=== PATIENT | male | born 1965 | race Caucasian/White ===

== ENCOUNTER 2017-11-19 08:02 | Observation (INO) | payer MEDICAID ==
[~2017-11-19] VITALS: Ht 175.3 cm; Wt 68.4 kg
[~2017-11-19 08:02] MED LIST: ALBU6.7H INH; CEPH-571 PO; CLIN300C85 PO; CLON-527 PO; DIVA500T9 PO; PHEN100C12 PO
[2017-11-19] MEDS ORDERED: aspirin 81mg tab.chew PO ONE (08:25)
[2017-11-19] MEDS ORDERED: nitroGLYCERIN 0.4mg SUBLingual tab SL ONE (08:38)
[2017-11-19 08:39] LABS: BASOPHILS % (AUTO) 0.4 % (0-1); EOSINOPHILS # (AUTO) 0.1 X10'3 (0-0.9); EOSINOPHILS % (AUTO) 0.6 % (0-6); HEMOGLOBIN 17.5 g/dl (14.0-17.9); LYMPHOCYTES # (AUTO) 2.1 X10'3 (1.1-4.8); MEAN CORPUSCULAR HEMOGLOBIN 33.2 PG (27.0-31.0); MEAN CORPUSCULAR HGB CONC 34.4 % (33.0-36.5); MEAN CORPUSCULAR VOLUME 96.5 FL (78-98); MEAN PLATELET VOLUME 8.1 FL (7.4-10.4); MONOCYTES # (AUTO) 0.6 X10'3 (0-0.9); MONOCYTES % (AUTO) 5.8 % (2-12); NEUTROPHILS # (AUTO) 7.7 X10'3 (1.8-7.7); NEUTROPHILS % (AUTO) 73.2 % (42-75); PLATELET COUNT 199 X10'3 (140-440); RED BLOOD COUNT 5.28 X10'6 (4.70-6.10); RED CELL DISTRIBUTION WIDTH 13.7 % (11.5-14.5); WHITE BLOOD COUNT 10.5 X10'3 (4.5-11.0)
[2017-11-19] MEDS ORDERED: metoprolol tartrate 1mg/ml inj IV ONE (08:50)
[2017-11-19 08:55] LABS: ALANINE AMINOTRANSFERASE 157 U/L (12-78); ALBUMIN 3.9 G/DL (3.4-5.0); ALBUMIN/GLOBULIN RATIO 0.9 (1.1-1.5); ALKALINE PHOSPHATASE 80 IU/L (46-116); ANION GAP 8 (8-16); ASPARTATE AMINO TRANSFERASE 66 U/L (10-37); BILIRUBIN,TOTAL 0.6 MG/DL (0.1-1.0); BLOOD UREA NITROGEN 13 MG/DL (7-18); BUN/CREATININE RATIO 16.9 (5.4-32.0); CALCIUM 9.2 MG/DL (8.5-10.1); CHLORIDE 102 MMOL/L (99-107); CREATININE 0.77 MG/DL (0.60-1.10); GLUCOSE 113 MG/DL (70-104); POTASSIUM 4.4 MMOL/L (3.5-5.1); SODIUM 137 MMOL/L (135-145); TOTAL CARBON DIOXIDE 27.3 MMOL/L (24-32); TOTAL PROTEIN 8.2 G/DL (6.4-8.2); eGFR > 90 ML/MIN
[2017-11-19] MEDS ORDERED: metoprolol tartrate 1mg/ml inj IV PRN (09:20)
[2017-11-19] MEDS ORDERED: magnesium/D5W IVPB 50 ML IV PRN (09:20)
[2017-11-19] MEDS ORDERED: magnesium Cl slow-release 64mg tablet PO PRN (09:20)
[2017-11-19] MEDS ORDERED: HYDROcodone/acetaminophen 10/325mg tab PO PRN (09:20)
[2017-11-19] MEDS ORDERED: nitroGLYCERIN 0.4mg SUBLingual tab SL PRN (09:20)
[2017-11-19] MEDS ORDERED: diphenhydrAMINE 25mg capsule PO PRN (09:20)
[2017-11-19] MEDS ORDERED: CAFFEINE CITRATE 60 MG/3 ML injection vial IV PRN (09:20)
[2017-11-19] MEDS ORDERED: morphine 4 MG/ML inj SYRINge IV PRN ×2 (09:20)
[2017-11-19] MEDS ORDERED: regadenoson 0.4mg/5ml syringe IV ONE (09:20)
[2017-11-19] MEDS ORDERED: HYDROcodone/acetaminophen 5mg/325mg tablet PO PRN (09:20)
[2017-11-19] MEDS ORDERED: potassium Cl 40MEQ/NS 500ml 500 ML IV PRN ×2 (09:20)
[2017-11-19] MEDS ORDERED: magnesium hydroxide 30ml (MOM) UD suspension PO PRN (09:20)
[2017-11-19] MEDS: K and/or MAG REPLACEMENT MC SCH (09:20)
[2017-11-19] MEDS ORDERED: potassium Cl 20 mEq SR tablet PO PRN ×2 (09:20)
[2017-11-19] MEDS ORDERED: magnesium 4gm in 100ml NS 100 ML IV PRN (09:20)
[2017-11-19] MEDS ORDERED: mag hydrox/Alum hydrox/simeth 30ml oral suspension PO PRN (09:20)
[2017-11-19] MEDS ORDERED: acetaminophen 325mg tablet PO PRN ×2 (09:20)
[2017-11-19] MEDS ORDERED: bisacodyl 10mg suppository rectal RC PRN (09:20)
[2017-11-19] MEDS ORDERED: ondansetron/PF 4mg/2ml inj IV PRN (09:20)
[2017-11-19 09:45] LABS: HEMOGLOBIN A1C 5.4 % (4.5-6.2)
[2017-11-19] MEDS ORDERED: iohexol 350MG/ML 100ml bottle IV ONE (09:48)
[2017-11-19] MEDS ORDERED: ipratropium/albuterol 3ml nebule NEB PRN (10:20)
[2017-11-19 11:00] VITALS: BP 138/93
[2017-11-19 11:37] VITALS: BP 138/93
[2017-11-19] MEDS: normal saline 1000ml 1,000 ML IV SCH ×2 (12:03→19:16)
[2017-11-19] MEDS: enoxaparin 40mg/0.4ml syringe SUBCUT SCH (12:03)
[2017-11-19] MEDS: levoFLOXACIN-Levaquin 750MG/D5 150 ML IV SCH (12:03)
[2017-11-19 15:00] VITALS: BP 128/89
[2017-11-19] MEDS ORDERED: albuterol 2.5 MG/3 ML nebule NEB PRN (16:00)
[2017-11-19 17:04] LABS: CLARITY,URINE CLEAR (Clear); COLOR,URINE YELLOW (Yellow); GLUCOSE, URINE NEGATIVE (Neg); KETONES,URINE NEGATIVE (Neg); LEUKOCYTE ESTERASE ,URINE NEGATIVE (Neg); NITRITES, URINE NEGATIVE (Neg); OCCULT BLOOD,URINE NEGATIVE (Neg); PROTEIN,URINE NEGATIVE (Neg); URINE AMPHETAMINE SCREEN NEGATIVE (Neg); URINE BARBITUATE SCREEN NEGATIVE (Neg); URINE BENZODIAZEPINES SCREEN NEGATIVE (Neg); URINE CANNABINOID SCREEN POSITIVE (Neg); URINE COCAINE SCREEN NEGATIVE (Neg); URINE METHADONE SCREEN NEGATIVE (Neg); URINE OPIATE SCREEN POSITIVE (Neg); URINE PHENCYCLIDINE SCREEN NEGATIVE (Neg)
[2017-11-19 17:07] LABS: UA COLLECTION TYPE NON-SPECIFIED
[2017-11-19 19:00] VITALS: BP 130/86
[2017-11-19] MEDS ORDERED: divalproex sod 250mg ER (24-hour) tablet PO SCH (21:00)
[2017-11-19] MEDS ORDERED: temazepam 15mg capsule PO PRN (21:00)
[2017-11-19] MEDS ORDERED: phenytoin sod ER 100mg capsule PO SCH (21:00)
[2017-11-19 23:00] VITALS: BP 109/80
[2017-11-20] VITALS (10 sets, daily range): BP systolic 113–140; BP diastolic 76–140
[2017-11-20] MEDS: normal saline 1000ml 1,000 ML IV SCH (05:22)
[2017-11-20 06:07] LABS: BASOPHILS % (AUTO) 0.5 % (0-1); EOSINOPHILS # (AUTO) 0.2 X10'3 (0-0.9); EOSINOPHILS % (AUTO) 2.8 % (0-6); HEMOGLOBIN 16.8 g/dl (14.0-17.9); LYMPHOCYTES # (AUTO) 2.3 X10'3 (1.1-4.8); MEAN CORPUSCULAR HGB CONC 34.2 % (33.0-36.5); MEAN CORPUSCULAR VOLUME 96.6 FL (78-98); MONOCYTES # (AUTO) 0.6 X10'3 (0-0.9); MONOCYTES % (AUTO) 7.6 % (2-12); NEUTROPHILS # (AUTO) 4.4 X10'3 (1.8-7.7); NEUTROPHILS % (AUTO) 58.1 % (42-75); PLATELET COUNT 193 X10'3 (140-440); RED BLOOD COUNT 5.07 X10'6 (4.70-6.10); RED CELL DISTRIBUTION WIDTH 14.1 % (11.5-14.5); WHITE BLOOD COUNT 7.5 X10'3 (4.5-11.0)
[2017-11-20 06:25] LABS: ALANINE AMINOTRANSFERASE 133 U/L (12-78); ALBUMIN 3.3 G/DL (3.4-5.0); ALBUMIN/GLOBULIN RATIO 0.8 (1.1-1.5); ALKALINE PHOSPHATASE 71 IU/L (46-116); ANION GAP 7 (8-16); ASPARTATE AMINO TRANSFERASE 62 U/L (10-37); BILIRUBIN,TOTAL 0.4 MG/DL (0.1-1.0); BLOOD UREA NITROGEN 15 MG/DL (7-18); BUN/CREATININE RATIO 19.2 (5.4-32.0); CALCIUM 8.8 MG/DL (8.5-10.1); CHLORIDE 103 MMOL/L (99-107); CHOL/HDL RATIO 2.8 (0.00-4.99); CHOLESTEROL 137 MG/DL (0-200); CREATININE 0.78 MG/DL (0.60-1.10); GLUCOSE 100 MG/DL (70-104); HDL CHOLESTEROL 49 MG/DL (35-60); LDL CHOLESTEROL 77 MG/DL (50-100); MAGNESIUM 1.9 MG/DL (1.5-2.4); PHOSPHORUS 2.9 MG/DL (2.3-4.5); POTASSIUM 4.3 MMOL/L (3.5-5.1); SODIUM 137 MMOL/L (135-145); TOTAL CARBON DIOXIDE 27.2 MMOL/L (24-32); TOTAL PROTEIN 7.3 G/DL (6.4-8.2); TRIGLYCERIDES 58 MG/DL (20-135); eGFR > 90 ML/MIN
[2017-11-20] MEDS ORDERED: regadenoson 0.4mg/5ml syringe IV ONE ×2 (07:45→08:19)
[2017-11-20] MEDS: K and/or MAG REPLACEMENT MC SCH (07:51)
[2017-11-20] MEDS: enoxaparin 40mg/0.4ml syringe SUBCUT SCH (07:53)
[2017-11-20] MEDS ORDERED: CAFFEINE CITRATE 60 MG/3 ML injection vial IV ONE (08:19)
[2017-11-20] MEDS: levoFLOXACIN-Levaquin 750MG/D5 150 ML IV SCH (09:32)
[2017-11-20] MEDS ORDERED: NITR0.4T51 SL (10:53)
[2017-11-20] MEDS ORDERED: ASPI-611 PO (10:53)
[2017-11-20] MEDS ORDERED: LEVO500T89 PO (10:55)
== END 2017-11-20 11:55 | disposition home or self-care (01) ==
LOC: ER 08:02 → ED HOLD 09:16 → PCU 3S 11:30
PROVIDERS: ADMIT Family Medicine; ATTEND Family Medicine
DX: R07.89 Other chest pain (principal); F17.210 Nicotine dependence, cigarettes, uncomplicated; F12.10 Cannabis abuse, uncomplicated; F10.10 Alcohol abuse, uncomplicated; B19.20 Unspecified viral hepatitis C without hepatic coma; I72.8 Aneurysm of other specified arteries; F31.9 Bipolar disorder, unspecified; G40.909 Epilepsy, unspecified, not intractable, without status epilepticus; I10 Essential (primary) hypertension; I25.110 Atherosclerotic heart disease of native coronary artery with unstable angina pectoris; Z86.73 Personal history of transient ischemic attack (TIA), and cerebral infarction without residual deficits; J40 Bronchitis, not specified as acute or chronic; M54.9 Dorsalgia, unspecified; G89.29 Other chronic pain; Z91.19 Patient's noncompliance with other medical treatment and regimen; Z90.49 Acquired absence of other specified parts of digestive tract; Z82.49 Family history of ischemic heart disease and other diseases of the circulatory system; Z80.1 Family history of malignant neoplasm of trachea, bronchus and lung
CPT/HCPCS: 36415; 71046; 71275; 78451; 80053; 80061; 80185; 80305; 81003; 83036; 83735; 83880; 84100; 84484; 85025; 85610; 87070; 93005; 93017; 93306; 94760; 96361; 96365; 96366; 96372; 96375; 99285; A9500; G0378; J1650; J1956; J3490; J7030; Q9967

== ENCOUNTER 2019-03-06 12:44 | Outpatient (CLI) | payer MEDICAID ==
[~2019-03-06 12:44] MED LIST changes: -ALBU6.7H INH; +ALBU6.7H9 INH; +ALBU8.5H8 INH; -CEPH-571 PO; -CLIN300C85 PO; -CLON-527 PO; +IPRA3AMP31 IH; +NITR0.4T51 SL
== END 2019-03-06 23:59 | disposition home or self-care (01) ==
LOC: RAD 12:44
DX: G40.909 Epilepsy, unspecified, not intractable, without status epilepticus (principal); F31.9 Bipolar disorder, unspecified
CPT/HCPCS: 95816

== ENCOUNTER 2019-09-26 18:06 | Emergency (ER) | payer MEDICAID ==
[~2019-09-26] VITALS: Ht 175.3 cm; Wt 79.5 kg
[2019-09-26] MEDS ORDERED: normal saline 1000ml 1,000 ML IVB ONE (18:25)
--- NOTE | 2019-09-26 18:30 | NUR ---
Pt on NRB SaO2 at 100%. Room sat never obtained. Desat to 90% on RA, given O2 via NC@2 LPM
[2019-09-26 18:55] LABS: PARTIAL THROMBOPLASTIN TIME 24 SECONDS (22-32)
--- NOTE | 2019-09-26 19:01 | NUR ---
JOAN BLOOM [facility] [phone]
--- NOTE | 2019-09-26 19:01 | NUR ---
JOAN BLOOM [phone]
[2019-09-26 19:02] LABS: ALANINE AMINOTRANSFERASE 68 U/L (12-78); ALBUMIN 4.1 G/DL (3.4-5.0); ALBUMIN/GLOBULIN RATIO 1.1 (1.1-1.5); ALKALINE PHOSPHATASE 52 IU/L (46-116); ANION GAP 18 (8-16); ASPARTATE AMINO TRANSFERASE 44 U/L (10-37); BILIRUBIN,TOTAL 0.9 MG/DL (0.1-1.0); BLOOD UREA NITROGEN 13 MG/DL (7-18); BUN/CREATININE RATIO 10.8 (5.4-32.0); CALCIUM 8.9 MG/DL (8.5-10.1); CHLORIDE 104 MMOL/L (99-107); GLUCOSE 113 MG/DL (70-104); POTASSIUM 3.4 MMOL/L (3.5-5.1); SODIUM 141 MMOL/L (135-145); TOTAL CARBON DIOXIDE 19.3 MMOL/L (24-32); TOTAL PROTEIN 7.8 G/DL (6.4-8.2); eGFR 64 ML/MIN
[2019-09-26 19:11] LABS: BASOPHILS % (AUTO) 0.4 % (0-1); EOSINOPHILS # (AUTO) 0.1 X10'3 (0-0.9); EOSINOPHILS % (AUTO) 0.8 % (0-6); HEMATOCRIT 49.8 % (42.0-52.0); HEMOGLOBIN 16.9 g/dl (14.0-17.9); LYMPHOCYTES # (AUTO) 2.4 X10'3 (1.1-4.8); LYMPHOCYTES % (AUTO) 27.6 % (21-51); MEAN CORPUSCULAR HEMOGLOBIN 33.2 PG (27.0-31.0); MEAN CORPUSCULAR HGB CONC 33.9 g/dL (33.0-36.5); MEAN PLATELET VOLUME 8.7 FL (7.4-10.4); MONOCYTES # (AUTO) 0.4 X10'3 (0-0.9); MONOCYTES % (AUTO) 4.7 % (2-12); NEUTROPHILS # (AUTO) 5.7 X10'3 (1.8-7.7); NEUTROPHILS % (AUTO) 66.5 % (42-75); PLATELET COUNT 187 X10'3 (140-440); RED BLOOD COUNT 5.07 X10'6 (4.70-6.10); WHITE BLOOD COUNT 8.6 X10'3 (4.5-11.0)
[2019-09-26 19:58] VITALS: BP 114/89
== END 2019-09-26 22:00 | disposition home or self-care (01) ==
LOC: ER 18:07
DX: G40.909 Epilepsy, unspecified, not intractable, without status epilepticus (principal); N28.9 Disorder of kidney and ureter, unspecified; J44.9 Chronic obstructive pulmonary disease, unspecified; F17.200 Nicotine dependence, unspecified, uncomplicated; E78.5 Hyperlipidemia, unspecified; G89.29 Other chronic pain; F12.90 Cannabis use, unspecified, uncomplicated; Z86.73 Personal history of transient ischemic attack (TIA), and cerebral infarction without residual deficits; Z90.49 Acquired absence of other specified parts of digestive tract; Z98.890 Other specified postprocedural states; Z88.0 Allergy status to penicillin; Z88.8 Allergy status to other drugs, medicaments and biological substances
CPT/HCPCS: 36415; 71045; 80053; 83880; 84484; 85025; 85379; 85610; 85730; 93005; 99285; J7030

== ENCOUNTER 2020-02-21 21:23 | Emergency (ER) | payer MEDICAID ==
--- NOTE | 2020-02-21 21:53 | NUR ---
found patient [place] bus [place]. Asked him to come in for evaluation. He said he was good now and didn't want to.
[2020-02-22] MEDS ORDERED: CEPH250T PO (20:14)
== END 2020-02-21 22:42 | disposition left against medical advice (07) ==
LOC: ER 21:24
DX: Z00.8 Encounter for other general examination (principal); Z53.21 Procedure and treatment not carried out due to patient leaving prior to being seen by health care provider

== ENCOUNTER 2020-02-22 17:03 | Emergency (ER) | payer MEDICAID ==
[~2020-02-22] VITALS: Ht 175.3 cm; Wt 75.0 kg
--- NOTE | 2020-02-22 17:59 | NUR ---
Pt returned from CT.
[2020-02-22] MEDS ORDERED: ondansetron/PF 4mg/2ml inj IV ONE (18:15)
[2020-02-22] MEDS ORDERED: morphine 4 MG/ML inj SYRINge IV ONE (18:15)
[2020-02-22 18:43] VITALS: BP 120/76
[2020-02-22 19:09] LABS: ALANINE AMINOTRANSFERASE 81 U/L (12-78); ALBUMIN 3.6 G/DL (3.4-5.0); ALBUMIN/GLOBULIN RATIO 0.9 (1.1-1.5); ALKALINE PHOSPHATASE 49 IU/L (46-116); ANION GAP 7 (8-16); ASPARTATE AMINO TRANSFERASE 37 U/L (10-37); BILIRUBIN,TOTAL 0.6 MG/DL (0.1-1.0); BLOOD UREA NITROGEN 15 MG/DL (7-18); CALCIUM 9.1 MG/DL (8.5-10.1); CHLORIDE 102 MMOL/L (99-107); CREATININE 0.88 MG/DL (0.60-1.10); GLUCOSE 85 MG/DL (70-104); POTASSIUM 3.7 MMOL/L (3.5-5.1); SODIUM 138 MMOL/L (135-145); TOTAL CARBON DIOXIDE 29.4 MMOL/L (24-32); TOTAL PROTEIN 7.4 G/DL (6.4-8.2); eGFR > 90 ML/MIN
[2020-02-22 19:11] LABS: BASOPHILS % (AUTO) 0.3 % (0-1); EOSINOPHILS # (AUTO) 0.1 X10'3 (0-0.9); EOSINOPHILS % (AUTO) 0.6 % (0-6); HEMATOCRIT 48.1 % (42.0-52.0); HEMOGLOBIN 16.7 g/dl (14.0-17.9); LYMPHOCYTES # (AUTO) 2.2 X10'3 (1.1-4.8); LYMPHOCYTES % (AUTO) 15.5 % (21-51); MEAN CORPUSCULAR HEMOGLOBIN 33.8 PG (27.0-31.0); MEAN CORPUSCULAR HGB CONC 34.6 g/dL (33.0-36.5); MEAN CORPUSCULAR VOLUME 97.5 FL (78-98); MEAN PLATELET VOLUME 8.7 FL (7.4-10.4); MONOCYTES # (AUTO) 1.5 X10'3 (0-0.9); MONOCYTES % (AUTO) 10.3 % (2-12); NEUTROPHILS # (AUTO) 10.4 X10'3 (1.8-7.7); NEUTROPHILS % (AUTO) 73.3 % (42-75); PLATELET COUNT 199 X10'3 (140-440); RED BLOOD COUNT 4.93 X10'6 (4.70-6.10); RED CELL DISTRIBUTION WIDTH 13.3 % (11.5-14.5); WHITE BLOOD COUNT 14.2 X10'3 (4.5-11.0)
[2020-02-22] MEDS ORDERED: TETanus/Pertussis (Acell)/Diphther VAC/PF (Tdap-Adult) 0.5ml syringe IMVAC ONE (19:20)
[2020-02-22] MEDS ORDERED: LIDOcaine 1% W/epiNEPHrine 1:200,000 10ml vial IJ ONE (19:20)
[2020-02-22] MEDS ORDERED: CefTRIAXone/D5W-Rocephin 1gm 50 ML IV ONE (19:40)
[2020-02-22] MEDS ORDERED: CEPH250T PO (20:14)
== END 2020-02-22 20:47 | disposition home or self-care (01) ==
LOC: ER 17:04
DX: S31.31XA Laceration without foreign body of scrotum and testes, initial encounter (principal); G89.29 Other chronic pain; F31.9 Bipolar disorder, unspecified; F12.90 Cannabis use, unspecified, uncomplicated; F19.90 Other psychoactive substance use, unspecified, uncomplicated; Z86.73 Personal history of transient ischemic attack (TIA), and cerebral infarction without residual deficits; Z86.69 Personal history of other diseases of the nervous system and sense organs; Z88.0 Allergy status to penicillin; Z88.8 Allergy status to other drugs, medicaments and biological substances; Z79.2 Long term (current) use of antibiotics; Z79.899 Other long term (current) drug therapy; W17.89XA Other fall from one level to another, initial encounter; Y93.89 Activity, other specified; Y92.89 Other specified places as the place of occurrence of the external cause; Y99.8 Other external cause status
CPT/HCPCS: 12002; 36415; 70450; 76870; 80053; 85025; 90471; 90715; 93976; 96365; 96375; 99285; J0696; J2270; J2405

== ENCOUNTER 2020-11-01 15:49 | Emergency (ER) | payer MEDICAID ==
[~2020-11-01] VITALS: Ht 175.3 cm; Wt 65.0 kg
[2020-11-01 17:20] LABS: BASOPHILS % (AUTO) 0.4 % (0-1); EOSINOPHILS # (AUTO) 0.1 X10'3 (0-0.9); EOSINOPHILS % (AUTO) 1.2 % (0-6); HEMATOCRIT 44.4 % (42.0-52.0); LYMPHOCYTES # (AUTO) 1.9 X10'3 (1.1-4.8); LYMPHOCYTES % (AUTO) 15.5 % (21-51); MEAN CORPUSCULAR HGB CONC 33.9 g/dL (33.0-36.5); MEAN CORPUSCULAR VOLUME 97.3 FL (78-98); MEAN PLATELET VOLUME 8.5 FL (7.4-10.4); MONOCYTES # (AUTO) 0.8 X10'3 (0-0.9); MONOCYTES % (AUTO) 6.9 % (2-12); NEUTROPHILS # (AUTO) 9.3 X10'3 (1.8-7.7); PLATELET COUNT 194 X10'3 (140-440); RED BLOOD COUNT 4.56 X10'6 (4.70-6.10); RED CELL DISTRIBUTION WIDTH 13.5 % (11.5-14.5); WHITE BLOOD COUNT 12.2 X10'3 (4.5-11.0)
[2020-11-01] MEDS ORDERED: ketorolac tromethamine 15mg/ml inj. IM ONE (17:40)
[2020-11-01 17:41] LABS: ALANINE AMINOTRANSFERASE 91 U/L (12-78); ALBUMIN 4.1 G/DL (3.4-5.0); ALBUMIN/GLOBULIN RATIO 1.3 (1.1-1.5); ALKALINE PHOSPHATASE 53 IU/L (46-116); ANION GAP 8 (8-16); ASPARTATE AMINO TRANSFERASE 39 U/L (10-37); BILIRUBIN,TOTAL 0.4 MG/DL (0.1-1.0); BLOOD UREA NITROGEN 28 MG/DL (7-18); BUN/CREATININE RATIO 28.6 (5.4-32.0); CALCIUM 8.9 MG/DL (8.5-10.1); CHLORIDE 105 MMOL/L (99-107); CREATININE 0.98 MG/DL (0.60-1.10); GLUCOSE 108 MG/DL (70-104); POTASSIUM 4.3 MMOL/L (3.5-5.1); SODIUM 140 MMOL/L (135-145); TOTAL PROTEIN 7.2 G/DL (6.4-8.2); eGFR 80 ML/MIN
[2020-11-01 17:42] LABS: C-REACTIVE PROTEIN < 0.05 MG/DL (0.0-0.5)
[2020-11-01 18:07] LABS: PARTIAL THROMBOPLASTIN TIME 28 SECONDS (22-32)
[2020-11-01] MEDS ORDERED: sulfamethoxazole/trimethoprim DS (800/160mg) tablet PO ONE (18:45)
[2020-11-01] MEDS ORDERED: SULF1TAB45 PO (18:47)
[2020-11-01 18:56] VITALS: BP 108/76
== END 2020-11-01 18:58 | disposition home or self-care (01) ==
LOC: ER 15:50
DX: L03.115 Cellulitis of right lower limb (principal); M25.571 Pain in right ankle and joints of right foot; G89.29 Other chronic pain; F41.9 Anxiety disorder, unspecified; F32.9 Major depressive disorder, single episode, unspecified; F12.90 Cannabis use, unspecified, uncomplicated; F19.90 Other psychoactive substance use, unspecified, uncomplicated; Z86.73 Personal history of transient ischemic attack (TIA), and cerebral infarction without residual deficits; Z86.69 Personal history of other diseases of the nervous system and sense organs; Z90.89 Acquired absence of other organs; Z98.890 Other specified postprocedural states; Z88.0 Allergy status to penicillin; Z88.8 Allergy status to other drugs, medicaments and biological substances; Z79.2 Long term (current) use of antibiotics; Z79.899 Other long term (current) drug therapy
CPT/HCPCS: 36415; 73610; 73630; 80053; 83605; 85025; 85610; 85651; 85730; 86140; 96372; 99284; J1885

== ENCOUNTER 2021-04-18 20:27 | Emergency (ER) | payer MEDICAID ==
[~2021-04-18] VITALS: Ht 175.3 cm; Wt 75.0 kg
[~2021-04-18 20:27] MED LIST changes: +ALBU8.5H17 INH; -ALBU8.5H8 INH
[2021-04-18] MEDS ORDERED: normal saline 1000ML IV soln IVB ONE (20:30)
[2021-04-18] MEDS ORDERED: LORazepam 2 mg/ml vial IV ONE (20:30)
[2021-04-18 21:06] LABS: BASOPHILS # (AUTO) 0.1 X10'3 (0-0.2); BASOPHILS % (AUTO) 0.7 % (0-1); EOSINOPHILS # (AUTO) 0.2 X10'3 (0-0.9); EOSINOPHILS % (AUTO) 1.7 % (0-6); HEMATOCRIT 44.5 % (42.0-52.0); HEMOGLOBIN 15.5 g/dl (14.0-17.9); LYMPHOCYTES # (AUTO) 1.9 X10'3 (1.1-4.8); LYMPHOCYTES % (AUTO) 18.5 % (21-51); MEAN CORPUSCULAR HEMOGLOBIN 32.8 PG (27.0-31.0); MEAN CORPUSCULAR HGB CONC 34.7 g/dL (33.0-36.5); MEAN CORPUSCULAR VOLUME 94.5 FL (78-98); MEAN PLATELET VOLUME 8.3 FL (7.4-10.4); MONOCYTES # (AUTO) 0.5 X10'3 (0-0.9); NEUTROPHILS # (AUTO) 7.7 X10'3 (1.8-7.7); NEUTROPHILS % (AUTO) 74.1 % (42-75); PLATELET COUNT 200 X10'3 (140-440); RED BLOOD COUNT 4.71 X10'6 (4.70-6.10); RED CELL DISTRIBUTION WIDTH 13.3 % (11.5-14.5); WHITE BLOOD COUNT 10.4 X10'3 (4.5-11.0)
[2021-04-18] MEDS ORDERED: LIDOcaine 1% W/epiNEPHrine 1:200,000 10ml vial IJ ONE (21:10)
[2021-04-18] MEDS ORDERED: LIDOcaine 1% w/epiNEPHrine 1:200,000 30ml vial IJ ONE (21:15)
[2021-04-18 21:21] LABS: ALANINE AMINOTRANSFERASE 147 U/L (12-78); ALBUMIN 3.5 G/DL (3.4-5.0); ALBUMIN/GLOBULIN RATIO 0.9 (1.1-1.5); ALKALINE PHOSPHATASE 59 IU/L (46-116); ANION GAP 10 (8-16); ASPARTATE AMINO TRANSFERASE 66 U/L (10-37); BILIRUBIN,TOTAL 0.5 MG/DL (0.1-1.0); BLOOD UREA NITROGEN 20 MG/DL (7-18); BUN/CREATININE RATIO 13.4 (5.4-32.0); CALCIUM 8.5 MG/DL (8.5-10.1); CHLORIDE 105 MMOL/L (99-107); CREATININE 1.49 MG/DL (0.60-1.10); ETHANOL < 0.010 GM/DL (0.0-0.010); GLUCOSE 129 MG/DL (70-104); POTASSIUM 3.7 MMOL/L (3.5-5.1); SODIUM 145 MMOL/L (135-145); TOTAL CARBON DIOXIDE 30.2 MMOL/L (24-32); TOTAL PROTEIN 7.2 G/DL (6.4-8.2); eGFR 49 ML/MIN
[2021-04-18 21:28] LABS: VALPROATE < 3.0 UG/ML (50-100)
--- NOTE | 2021-04-18 21:31 | NUR ---
AT BEDSIDE SUTURING LACERATION TO FACE
--- NOTE | 2021-04-18 23:34 | NUR ---
PT AMBULATED ON HIS OWN TO THE RESTROOM AND WALKED BACK INTO BED.
--- NOTE | 2021-04-18 23:36 | NUR ---
FAMILY WILL PICK PT UP. ETA IN 15 MINUTES
[2021-04-19 00:08] VITALS: BP 126/91
== END 2021-04-19 00:10 | disposition home or self-care (01) ==
LOC: ER 20:28
DX: S01.111A Laceration without foreign body of right eyelid and periocular area, initial encounter (principal); R56.9 Unspecified convulsions; G89.29 Other chronic pain; F41.9 Anxiety disorder, unspecified; F31.9 Bipolar disorder, unspecified; F12.90 Cannabis use, unspecified, uncomplicated; F19.90 Other psychoactive substance use, unspecified, uncomplicated; Z86.73 Personal history of transient ischemic attack (TIA), and cerebral infarction without residual deficits; Z86.69 Personal history of other diseases of the nervous system and sense organs; Z90.89 Acquired absence of other organs; Z98.890 Other specified postprocedural states; Z88.0 Allergy status to penicillin; Z88.8 Allergy status to other drugs, medicaments and biological substances; Z79.899 Other long term (current) drug therapy; X58.XXXA Exposure to other specified factors, initial encounter; Y93.89 Activity, other specified; Y92.89 Other specified places as the place of occurrence of the external cause; Y99.8 Other external cause status
CPT/HCPCS: 12011; 36415; 71045; 80053; 80164; 80320; 85025; 96361; 96374; 99284; J2060; J7030

== ENCOUNTER 2021-06-27 07:46 | Emergency (ER) | payer MEDICAID ==
[~2021-06-27] VITALS: Ht 175.3 cm; Wt 72.7 kg
[2021-06-27 07:55] VITALS: BP 107/70
[2021-06-27] MEDS ORDERED: ALBUTEROL INHALER 1 PUFF/90 MCG INHALER IH PRN (08:25)
== END 2021-06-27 11:18 | disposition home or self-care (01) ==
LOC: ER 07:46
DX: U07.1 COVID-19 (principal); R51.9 Headache, unspecified; G89.29 Other chronic pain; F41.9 Anxiety disorder, unspecified; F31.9 Bipolar disorder, unspecified; F12.90 Cannabis use, unspecified, uncomplicated; F19.90 Other psychoactive substance use, unspecified, uncomplicated; Z86.69 Personal history of other diseases of the nervous system and sense organs; Z86.73 Personal history of transient ischemic attack (TIA), and cerebral infarction without residual deficits; Z90.89 Acquired absence of other organs; Z98.890 Other specified postprocedural states; Z88.0 Allergy status to penicillin; Z88.8 Allergy status to other drugs, medicaments and biological substances; Z79.899 Other long term (current) drug therapy
CPT/HCPCS: 71045; 99283

== ENCOUNTER 2022-03-29 09:56 | Emergency (ER) | payer MEDICAID ==
[~2022-03-29] VITALS: Ht 167.6 cm; Wt 77.3 kg
[~2022-03-29 09:56] MED LIST changes: +ALBU6.7H14 INH; -ALBU6.7H9 INH
[2022-03-29 10:06] VITALS: BP 118/92
== END 2022-03-29 11:23 | disposition home or self-care (01) ==
LOC: ER 09:56
DX: S93.602A Unspecified sprain of left foot, initial encounter (principal); G89.29 Other chronic pain; F41.9 Anxiety disorder, unspecified; F31.9 Bipolar disorder, unspecified; F12.90 Cannabis use, unspecified, uncomplicated; F19.90 Other psychoactive substance use, unspecified, uncomplicated; Z86.73 Personal history of transient ischemic attack (TIA), and cerebral infarction without residual deficits; Z86.69 Personal history of other diseases of the nervous system and sense organs; Z90.89 Acquired absence of other organs; Z98.890 Other specified postprocedural states; Z88.0 Allergy status to penicillin; Z88.8 Allergy status to other drugs, medicaments and biological substances; Z79.899 Other long term (current) drug therapy; X58.XXXA Exposure to other specified factors, initial encounter; Y93.89 Activity, other specified; Y92.89 Other specified places as the place of occurrence of the external cause; Y99.8 Other external cause status
CPT/HCPCS: 93971; 99284

== ENCOUNTER 2022-09-17 05:25 | Emergency (ER) | payer MEDICAID ==
[~2022-09-17] VITALS: Ht 175.3 cm; Wt 77.3 kg
[2022-09-17 05:31] VITALS: BP 123/89
[2022-09-17 05:56] LABS: BASOPHILS % (AUTO) 0.7 % (0-1); EOSINOPHILS # (AUTO) 0.2 X10'3 (0-0.9); EOSINOPHILS % (AUTO) 3.2 % (0-6); HEMOGLOBIN 16.4 g/dl (14.0-17.9); LYMPHOCYTES # (AUTO) 1.9 X10'3 (1.1-4.8); LYMPHOCYTES % (AUTO) 26.4 % (21-51); MEAN CORPUSCULAR HEMOGLOBIN 31.8 PG (27.0-31.0); MEAN CORPUSCULAR HGB CONC 34.1 g/dL (33.0-36.5); MEAN CORPUSCULAR VOLUME 93.1 FL (78-98); MEAN PLATELET VOLUME 8.2 FL (7.4-10.4); MONOCYTES # (AUTO) 0.5 X10'3 (0-0.9); MONOCYTES % (AUTO) 6.9 % (2-12); NEUTROPHILS # (AUTO) 4.5 X10'3 (1.8-7.7); NEUTROPHILS % (AUTO) 62.8 % (42-75); PLATELET COUNT 193 X10'3 (140-440); RED BLOOD COUNT 5.15 X10'6 (4.70-6.10); WHITE BLOOD COUNT 7.1 X10'3 (4.5-11.0)
[2022-09-17 06:04] LABS: ALANINE AMINOTRANSFERASE 39 U/L (12-78); ALBUMIN 3.9 G/DL (3.4-5.0); ALKALINE PHOSPHATASE 67 IU/L (46-116); ANION GAP 5 (8-16); ASPARTATE AMINO TRANSFERASE 23 U/L (10-37); BILIRUBIN,TOTAL 0.2 MG/DL (0.1-1.0); BLOOD UREA NITROGEN 16 MG/DL (7-18); CALCIUM 9.2 MG/DL (8.5-10.1); CHLORIDE 101 MMOL/L (99-107); CREATININE 0.89 MG/DL (0.60-1.10); GLUCOSE 113 MG/DL (70-104); POTASSIUM 4.2 MMOL/L (3.5-5.1); SODIUM 139 MMOL/L (135-145); TOTAL CARBON DIOXIDE 32.6 MMOL/L (24-32); TOTAL PROTEIN 7.9 G/DL (6.4-8.2); eGFR 89 ML/MIN
[2022-09-17 06:11] LABS: MAGNESIUM 2.1 MG/DL (1.5-2.4)
[2022-09-17] MEDS ORDERED: LORazepam 2 mg/ml vial IV ONE (06:15)
[2022-09-17] MEDS ORDERED: ipratropium/albuterol 3ml nebule NEB ONE (06:15)
[2022-09-17] MEDS ORDERED: methylPREDNISolone sod succ 125mg/2ml vial IV ONE (06:15)
[2022-09-17] MEDS ORDERED: BUPR-317 PO (08:06)
[2022-09-17] MEDS ORDERED: DOXY-411 PO (08:06)
[2022-09-17] MEDS ORDERED: BUDE10.2 INH (08:06)
== END 2022-09-17 08:40 | disposition home or self-care (01) ==
LOC: ER 05:26
DX: J45.901 Unspecified asthma with (acute) exacerbation (principal); F31.9 Bipolar disorder, unspecified; I11.9 Hypertensive heart disease without heart failure; J44.9 Chronic obstructive pulmonary disease, unspecified; G89.29 Other chronic pain; M54.9 Dorsalgia, unspecified; F12.10 Cannabis abuse, uncomplicated; Z88.0 Allergy status to penicillin; Z88.8 Allergy status to other drugs, medicaments and biological substances
CPT/HCPCS: 36415; 71045; 80053; 83735; 83880; 84484; 85025; 93005; 96374; 96375; 99285; J2060; J2930; 94760; A4615

== ENCOUNTER 2022-09-23 07:24 | Emergency (ER) | payer MEDICAID ==
[~2022-09-23] VITALS: Ht 175.3 cm; Wt 77.3 kg
[~2022-09-23 07:24] MED LIST changes: +BUDE10.2 INH; +BUPR-317 PO; +DOXY-411 PO
[2022-09-23] MEDS ORDERED: predniSONE 20 mg tablet PO ONE (07:45)
[2022-09-23] MEDS ORDERED: ipratropium/albuterol 3ml nebule NEB PRN (07:45)
[2022-09-23] MEDS ORDERED: IPRA3AMP31 IH (08:39)
[2022-09-23] MEDS ORDERED: ALBU8HFA PO (08:39)
[2022-09-23] MEDS ORDERED: PRED20TA PO (08:39)
[2022-09-23 08:55] VITALS: BP 144/84
== END 2022-09-23 08:58 | disposition home or self-care (01) ==
LOC: ER 07:25
DX: J44.1 Chronic obstructive pulmonary disease with (acute) exacerbation (principal); G89.29 Other chronic pain; F41.9 Anxiety disorder, unspecified; F31.9 Bipolar disorder, unspecified; Z86.73 Personal history of transient ischemic attack (TIA), and cerebral infarction without residual deficits; Z88.0 Allergy status to penicillin; Z88.8 Allergy status to other drugs, medicaments and biological substances; Z79.899 Other long term (current) drug therapy
CPT/HCPCS: 94640; 99283; J7512

== ENCOUNTER 2022-10-31 16:50 | Emergency (ER) | payer MEDICAID ==
[~2022-10-31 16:50] MED LIST changes: -DOXY-411 PO
== END 2022-10-31 17:54 | disposition left against medical advice (07) ==
LOC: ER 16:50
DX: F41.9 Anxiety disorder, unspecified (principal); Z53.21 Procedure and treatment not carried out due to patient leaving prior to being seen by health care provider

== ENCOUNTER 2023-01-31 14:23 | Emergency (ER) | payer MEDICAID ==
[~2023-01-31] VITALS: Ht 175.3 cm; Wt 73.6 kg
[2023-01-31 14:58] VITALS: BP 139/98; PULSE 70; TEMP 98; O2SAT 96
[2023-01-31] MEDS ORDERED: silver sulfadiazine cream 400gm jar TP STA (17:22)
[2023-01-31] MEDS ORDERED: ketorolac trometh. 30mg/ml inj. IM ONE (17:25)
[2023-01-31] MEDS ORDERED: ketorolac tromethamine 15mg/ml inj. IM ONE (17:25)
[2023-01-31] MEDS ORDERED: SILV20CR13 TOP (17:37)
[2023-01-31 17:53] VITALS: RESP 16
== END 2023-01-31 18:01 | disposition home or self-care (01) ==
LOC: ER 14:23
DX: T23.202A Burn of second degree of left hand, unspecified site, initial encounter (principal); J44.9 Chronic obstructive pulmonary disease, unspecified; G89.29 Other chronic pain; F31.9 Bipolar disorder, unspecified; F41.9 Anxiety disorder, unspecified; F12.90 Cannabis use, unspecified, uncomplicated; Z86.73 Personal history of transient ischemic attack (TIA), and cerebral infarction without residual deficits; Z90.49 Acquired absence of other specified parts of digestive tract; Z98.890 Other specified postprocedural states; Z88.0 Allergy status to penicillin; Z88.8 Allergy status to other drugs, medicaments and biological substances; Z79.899 Other long term (current) drug therapy; X08.8XXA Exposure to other specified smoke, fire and flames, initial encounter; Y93.89 Activity, other specified; Y92.89 Other specified places as the place of occurrence of the external cause; Y99.8 Other external cause status
CPT/HCPCS: 16020; 96372; 99283; J1885

== ENCOUNTER 2023-02-06 15:42 | Emergency (ER) | payer MEDICAID ==
[~2023-02-06] VITALS: Ht 175.3 cm; Wt 80.0 kg
[~2023-02-06 15:42] MED LIST changes: +SILV20CR13 TOP
[2023-02-06 15:58] VITALS: BP 134/83; PULSE 87; RESP 18; TEMP 98; O2SAT 93
[2023-02-07] MEDS ORDERED: PRED20TA PO (09:40)
[2023-02-07] MEDS ORDERED: ALBU8HFA PO (09:40)
[2023-02-07] MEDS ORDERED: AZIT250T PO (09:40)
== END 2023-02-06 19:35 | disposition left against medical advice (07) ==
LOC: ER 15:43
DX: T23.002A Burn of unspecified degree of left hand, unspecified site, initial encounter (principal); Z53.21 Procedure and treatment not carried out due to patient leaving prior to being seen by health care provider; X08.8XXA Exposure to other specified smoke, fire and flames, initial encounter; Y93.89 Activity, other specified; Y92.89 Other specified places as the place of occurrence of the external cause; Y99.8 Other external cause status
CPT/HCPCS: 99281

== ENCOUNTER 2023-04-25 02:56 | Emergency (ER) | payer MEDICAID ==
[~2023-04-25] VITALS: Ht 175.3 cm; Wt 85.0 kg
[2023-04-25 03:00] VITALS: TEMP 97.8
[2023-04-25 03:24] LABS: BASOPHILS # (AUTO) 0.1 X10'3 (0-0.2); BASOPHILS % (AUTO) 0.6 % (0-1); EOSINOPHILS # (AUTO) 0.3 X10'3 (0-0.9); EOSINOPHILS % (AUTO) 3.9 % (0-6); HEMATOCRIT 51.9 % (42.0-52.0); HEMOGLOBIN 17.5 g/dl (14.0-17.9); LYMPHOCYTES # (AUTO) 2.8 X10'3 (1.1-4.8); LYMPHOCYTES % (AUTO) 32.1 % (21-51); MEAN CORPUSCULAR HEMOGLOBIN 32.5 PG (27.0-31.0); MEAN CORPUSCULAR HGB CONC 33.8 g/dL (33.0-36.5); MEAN CORPUSCULAR VOLUME 96.1 FL (78-98); MONOCYTES # (AUTO) 0.6 X10'3 (0-0.9); MONOCYTES % (AUTO) 7.2 % (2-12); NEUTROPHILS # (AUTO) 4.9 X10'3 (1.8-7.7); NEUTROPHILS % (AUTO) 56.2 % (42-75); PLATELET COUNT 223 X10'3 (140-440); RED CELL DISTRIBUTION WIDTH 13.2 % (11.5-14.5); WHITE BLOOD COUNT 8.6 X10'3 (4.5-11.0)
[2023-04-25 03:39] LABS: ALANINE AMINOTRANSFERASE 24 U/L (12-78); ALBUMIN 4.1 G/DL (3.4-5.0); ALBUMIN/GLOBULIN RATIO 1.2 (1.1-1.5); ALKALINE PHOSPHATASE 78 IU/L (46-116); ANION GAP 4 (8-16); ASPARTATE AMINO TRANSFERASE 17 U/L (10-37); BILIRUBIN,TOTAL 0.5 MG/DL (0.1-1.0); BLOOD UREA NITROGEN 11 MG/DL (7-18); BUN/CREATININE RATIO 12.1 (10.0-20.0); CALCIUM 9.1 MG/DL (8.5-10.1); CHLORIDE 102 MMOL/L (99-107); CREATININE 0.91 MG/DL (0.60-1.10); GLUCOSE 109 MG/DL (70-104); POTASSIUM 4.3 MMOL/L (3.5-5.1); SODIUM 137 MMOL/L (135-145); TOTAL CARBON DIOXIDE 31.5 MMOL/L (24-32); TOTAL PROTEIN 7.5 G/DL (6.4-8.2); eCRCL 92 ML/MIN; eGFR 86 ML/MIN
[2023-04-25 03:46] LABS: PRO BRAIN NATRIURETIC PEPTIDE < 30 PG/ML (0-125)
[2023-04-25 05:30] VITALS: BP 127/72; PULSE 79; RESP 17; O2SAT 98
== END 2023-04-25 06:31 | disposition home or self-care (01) ==
LOC: ER 02:56
DX: R07.9 Chest pain, unspecified (principal); G89.29 Other chronic pain; M54.9 Dorsalgia, unspecified; F31.9 Bipolar disorder, unspecified; F32.A Depression, unspecified; F12.10 Cannabis abuse, uncomplicated; Z88.0 Allergy status to penicillin; Z88.8 Allergy status to other drugs, medicaments and biological substances; Z79.899 Other long term (current) drug therapy
CPT/HCPCS: 36415; 71045; 80053; 83880; 84484; 85025; 93005; 99285

== ENCOUNTER 2023-07-17 15:48 | Emergency (ER) | payer MEDICAID ==
[~2023-07-17] VITALS: Ht 172.7 cm; Wt 86.4 kg
[2023-07-17 15:52] VITALS: BP 158/100; PULSE 85; TEMP 97.8; O2SAT 95
[2023-07-17 16:04] VITALS: RESP 16
[2023-07-17] MEDS ORDERED: LEVO-65 PO (17:19)
[2023-07-17] MEDS ORDERED: PRED20TA PO (17:19)
[2023-07-17] MEDS ORDERED: FLUT16SP2 BOTHNARES (17:19)
== END 2023-07-17 17:28 | disposition home or self-care (01) ==
LOC: ER 15:49
DX: J20.9 Acute bronchitis, unspecified (principal); J01.90 Acute sinusitis, unspecified; H92.03 Otalgia, bilateral; F12.90 Cannabis use, unspecified, uncomplicated; F41.9 Anxiety disorder, unspecified; F32.A Depression, unspecified; J44.9 Chronic obstructive pulmonary disease, unspecified; Z20.822 Contact with and (suspected) exposure to COVID-19; Z86.73 Personal history of transient ischemic attack (TIA), and cerebral infarction without residual deficits; Z88.0 Allergy status to penicillin; Z88.8 Allergy status to other drugs, medicaments and biological substances; Z79.899 Other long term (current) drug therapy; Z79.2 Long term (current) use of antibiotics
CPT/HCPCS: 36415; 87811; 99283

== ENCOUNTER 2023-08-09 19:47 | Emergency (ER) | payer MEDICAID ==
[~2023-08-09] VITALS: Ht 175.3 cm; Wt 79.5 kg
[~2023-08-09 19:47] MED LIST changes: +FLUT16SP2 BOTHNARES
[2023-08-09 19:49] VITALS: TEMP 97.6
[2023-08-09 21:04] LABS: BASOPHILS # (AUTO) 0.1 X10'3 (0-0.2); BASOPHILS % (AUTO) 0.7 % (0-1); EOSINOPHILS # (AUTO) 0.1 X10'3 (0-0.9); EOSINOPHILS % (AUTO) 0.9 % (0-6); HEMATOCRIT 49.2 % (42.0-52.0); HEMOGLOBIN 16.8 g/dl (14.0-17.9); LYMPHOCYTES # (AUTO) 1.5 X10'3 (1.1-4.8); LYMPHOCYTES % (AUTO) 11.2 % (21-51); MEAN CORPUSCULAR HEMOGLOBIN 31.3 PG (27.0-31.0); MEAN CORPUSCULAR HGB CONC 34.2 g/dL (33.0-36.5); MEAN CORPUSCULAR VOLUME 91.4 FL (78-98); MEAN PLATELET VOLUME 8.2 FL (7.4-10.4); MONOCYTES # (AUTO) 0.6 X10'3 (0-0.9); MONOCYTES % (AUTO) 4.1 % (2-12); NEUTROPHILS # (AUTO) 11.4 X10'3 (1.8-7.7); NEUTROPHILS % (AUTO) 83.1 % (42-75); PLATELET COUNT 243 X10'3 (140-440); RED BLOOD COUNT 5.38 X10'6 (4.70-6.10); RED CELL DISTRIBUTION WIDTH 14.5 % (11.5-14.5); WHITE BLOOD COUNT 13.8 X10'3 (4.5-11.0)
[2023-08-09 21:24] LABS: ALANINE AMINOTRANSFERASE 26 U/L (12-78); ALBUMIN/GLOBULIN RATIO 1.1 (1.1-1.5); ALKALINE PHOSPHATASE 70 IU/L (46-116); ANION GAP 11 (8-16); ASPARTATE AMINO TRANSFERASE 24 U/L (10-37); BILIRUBIN,TOTAL 0.8 MG/DL (0.1-1.0); BLOOD UREA NITROGEN 17 MG/DL (7-18); CALCIUM 8.6 MG/DL (8.5-10.1); CHLORIDE 101 MMOL/L (99-107); CREATININE 1.06 MG/DL (0.60-1.10); GLUCOSE 114 MG/DL (70-104); POTASSIUM 3.9 MMOL/L (3.5-5.1); SODIUM 138 MMOL/L (135-145); TOTAL PROTEIN 7.5 G/DL (6.4-8.2); eCRCL 78 ML/MIN; eGFR 72 ML/MIN
[2023-08-09 21:25] LABS: ETHANOL < 10 MG/DL (<10); MAGNESIUM 2.3 MG/DL (1.5-2.4)
[2023-08-09 21:34] LABS: BILIRUBIN,DIRECT 0.2 MG/DL (0-0.3)
[2023-08-09] MEDS: chlordiazePOXIDE 25mg capsule PO ONE (22:38)
[2023-08-09 22:39] VITALS: BP 150/99; PULSE 95; RESP 20; O2SAT 100
== END 2023-08-09 22:40 | disposition home or self-care (01) ==
LOC: ER 19:48
DX: S00.83XA Contusion of other part of head, initial encounter (principal); F10.239 Alcohol dependence with withdrawal, unspecified; G40.909 Epilepsy, unspecified, not intractable, without status epilepticus; J44.9 Chronic obstructive pulmonary disease, unspecified; F12.90 Cannabis use, unspecified, uncomplicated; Z79.2 Long term (current) use of antibiotics; Z88.0 Allergy status to penicillin; Z88.8 Allergy status to other drugs, medicaments and biological substances; Z79.899 Other long term (current) drug therapy; Z98.890 Other specified postprocedural states; X58.XXXA Exposure to other specified factors, initial encounter; Y93.89 Activity, other specified; Y92.89 Other specified places as the place of occurrence of the external cause; Y99.8 Other external cause status
CPT/HCPCS: 36415; 80048; 80076; 80320; 83735; 85025; 99284

== ENCOUNTER 2024-02-08 07:10 | Emergency (ER) | payer MEDICAID ==
[~2024-02-08] VITALS: Ht 175.3 cm; Wt 75.0 kg
[~2024-02-08 07:10] MED LIST changes: -BUPR-317 PO; +BUPR-561 PO
[2024-02-08 08:04] LABS: EOSINOPHILS # (AUTO) 0.1 X10'3 (0-0.9); HEMOGLOBIN 17.2 g/dl (14.0-17.9); MEAN PLATELET VOLUME 8.3 FL (7.4-10.4); MONOCYTES # (AUTO) 0.3 X10'3 (0-0.9); MONOCYTES % (AUTO) 3.7 % (2-12)
[2024-02-08 08:06] LABS: BASOPHILS % (AUTO) 0.5 % (0-1); EOSINOPHILS % (AUTO) 0.8 % (0-6); HEMATOCRIT 50.8 % (42.0-52.0); LYMPHOCYTES # (AUTO) 1.3 X10'3 (1.1-4.8); MEAN CORPUSCULAR HEMOGLOBIN 32.1 PG (27.0-31.0); MEAN CORPUSCULAR VOLUME 94.5 FL (78-98); NEUTROPHILS # (AUTO) 7.3 X10'3 (1.8-7.7); PLATELET COUNT 204 X10'3 (140-440); RED BLOOD COUNT 5.37 X10'6 (4.70-6.10); RED CELL DISTRIBUTION WIDTH 13.3 % (11.5-14.5)
[2024-02-08 08:27] LABS: ALBUMIN 3.9 G/DL (3.4-5.0); ANION GAP 7 (8-16); BLOOD UREA NITROGEN 9 MG/DL (7-18); CALCIUM 9.2 MG/DL (8.5-10.1); CHLORIDE 102 MMOL/L (99-107); CREATININE 0.82 MG/DL (0.60-1.10); GLUCOSE 115 MG/DL (70-104); POTASSIUM 4.4 MMOL/L (3.5-5.1); PRO BRAIN NATRIURETIC PEPTIDE 59 PG/ML (0-125); SODIUM 138 MMOL/L (135-145); TOTAL CARBON DIOXIDE 28.9 MMOL/L (24-32); eCRCL 101 ML/MIN; eGFR > 90 ML/MIN
[2024-02-08] MEDS ORDERED: iohexol 350MG/ML 100ml bottle IV ONE (08:54)
[2024-02-08 11:24] VITALS: BP 148/95; PULSE 80; RESP 16; TEMP 97.9; O2SAT 95
== END 2024-02-08 11:26 | disposition home or self-care (01) ==
LOC: ER 07:11
DX: R07.89 Other chest pain (principal); J44.9 Chronic obstructive pulmonary disease, unspecified; G89.29 Other chronic pain; M54.9 Dorsalgia, unspecified; F41.9 Anxiety disorder, unspecified; F32.A Depression, unspecified; F12.90 Cannabis use, unspecified, uncomplicated; Z90.49 Acquired absence of other specified parts of digestive tract; Z98.890 Other specified postprocedural states; Z88.0 Allergy status to penicillin; Z88.8 Allergy status to other drugs, medicaments and biological substances; Z79.899 Other long term (current) drug therapy; Z79.51 Long term (current) use of inhaled steroids; Z79.52 Long term (current) use of systemic steroids
CPT/HCPCS: 36415; 71045; 71275; 80048; 83880; 84484; 85025; 93005; 99285; Q9967

== ENCOUNTER 2024-07-03 10:03 | Emergency (ER) | payer MEDICAID ==
[~2024-07-03] VITALS: Ht 175.3 cm; Wt 75.5 kg
[2024-07-03 10:11] VITALS: BP 155/82; PULSE 72; RESP 16; O2SAT 97
[2024-07-03] MEDS ORDERED: HYDR-3965 PO (11:48)
[2024-07-03] MEDS ORDERED: CLIN-143 PO (11:48)
[2024-07-03] MEDS ORDERED: SILV20CR13 TOP (11:48)
[2024-07-03 12:50] VITALS: TEMP 98.3
== END 2024-07-03 12:53 | disposition home or self-care (01) ==
LOC: ER 10:04
DX: T23.202A Burn of second degree of left hand, unspecified site, initial encounter (principal); F31.9 Bipolar disorder, unspecified; J44.9 Chronic obstructive pulmonary disease, unspecified; F12.90 Cannabis use, unspecified, uncomplicated; Z86.73 Personal history of transient ischemic attack (TIA), and cerebral infarction without residual deficits; Z88.0 Allergy status to penicillin; Z88.8 Allergy status to other drugs, medicaments and biological substances; Z90.49 Acquired absence of other specified parts of digestive tract; Z98.890 Other specified postprocedural states; X15.0XXA Contact with hot stove (kitchen), initial encounter; Y93.89 Activity, other specified; Y92.89 Other specified places as the place of occurrence of the external cause; Y99.8 Other external cause status
CPT/HCPCS: 99283

== ENCOUNTER 2024-09-30 09:58 | Emergency (ER) | payer MEDICAID ==
[~2024-09-30] VITALS: Ht 175.3 cm; Wt 77.3 kg
[~2024-09-30 09:58] MED LIST changes: -BUPR-561 PO; +BUPR-726 PO
[2024-09-30 10:02] VITALS: TEMP 97.8
--- NOTE | 2024-09-30 10:48 | RADIOLOGY REPORT ---
DI ELBOW, COMPLETE (3VW MIN), INDICATION: ELBOW PAIN,LEFT FELL IN SHOWER YESERDAY TECHNICAL DATA: Frontal, oblique and lateral views were obtained of the right elbow. COMPARISON: FOOT, COMPLETE (3VW MIN) on DOS: 11/01/20, ANKLE, COMPLETE(3VW MIN) on DOS: 11/01/20 FINDINGS: No fracture is identified. Well corticated ossific density overlying the lateral epicondyle. This is likely related to remote injury. Joint spaces are maintained. Alignment at the joint is anatomic. No significant elbow joint effusion. Posterior elbow soft tissue swelling. IMPRESSION: 1. No acute fracture or dislocation of the right elbow. 2. Posterior elbow soft tissue swelling.
[2024-09-30] MEDS: ketorolac trometh 15mg/ml vial 15 MG/ML ML IM ONE (11:46)
[2024-09-30 12:19] VITALS: BP 156/103; PULSE 74; RESP 16; O2SAT 94
--- NOTE | 2024-09-30 12:19 | Physician Documentation ---
History of Present Illness ~ Chief Complaint: Elbow pain Stated Complaint: L ELBOW INFECTION Time Seen by MD: 10:17 Primary Medical Doctor: [facility] IN [place], [place] HPI This 59-year-old male presents with left posterior elbow swelling and pain after slipping and falling in the shower last night striking his elbow, patient reports no other injuries including reporting did not hit his head. Tetanus within 5 years: No Medication Reconciliation Allergies: Coded Allergies: Penicillins (Verified Allergy, Intermediate, 07/03/24) propoxyphene HCl (Verified Allergy, Intermediate, 07/03/24) propoxyphene napsylate (Verified Allergy, Intermediate, 07/03/24) Scheduled Albuterol Sulfate (Proair Hfa), 2 PUFFS INH Q4HPRN Budesonide/Formoterol Fumarate (Symbicort 160-4.5 Mcg Inhaler), 2 PUFFS INH Q12H Bupropion HCl (Bupropion Xl), 1 TAB PO QAM Divalproex ER* (Depakote ER*), 1 TAB PO HS, (Reported) Fluticasone Propionate (Flonase), 2 SPRAYS BOTHNARES DAILY Ipratropium/Albuterol Sulfate (Duoneb 2.5-0.5 Mg/3 Ml Soln), 3 ML IH BID Ipratropium/Albuterol Sulfate (Duoneb 2.5-0.5 Mg/3 Ml Soln), 3 ML IH Q4H Phenytoin Sodium Extended (Phenytoin Sodium Extended), 5 TAB PO HS, (Reported) Silver Sulfadiazine (Silvadene), 1 APPLIC TOP Q12H Silver Sulfadiazine (Silvadene), 1 APPLIC TOP Q12H Scheduled PRN Albuterol Sulfate (Proventil Hfa), 2 PUFFS INH TID PRN PRN for SOB or wheezing, (Reported) Nitroglycerin SL* (Nitrostat SL*), 0.4 MG SL Q5MIN PRN for chest pain Past Medical History Past Medical History: CVA/TIA/Stroke, Seizures, Bronchitis, COPD, Chronic Pain, Chronic Back Pain, Anxiety, Bipolar, Depression Past Surgical History: appendectomy, orthopedic surgeries Alcohol Use: None Drug Use: marijuana, other Lives with: Spouse Lives In: Home Occupation: employed Review of Systems ROS Left elbow pain as stated above in the HPI, otherwise all systems are reviewed and negative. Physical Exam Vital Signs: Temperature: 97.8, Source: Temporal, Heart Rate: 85, Respiratory Rate: 16, BP: 136/87, Pulse Oximetry: 98, Weight: 77.270 Physical Exam VITALS: Reviewed and as above. GENERAL: Alert, nontoxic appearing, no apparent distress. RESPIRATORY: No increased work of breathing, no respiratory distress, speaking in full clear sentences MUSCULOSKELETAL: Swelling and tenderness to posterior left elbow without ecchymosis, no anterior pain or swelling, range of motion of elbow intact, limb is neurovascularly intact distal to injury Progress Results/Orders Results/Orders Orders - ANTOLIN DEWITT Ortho Orders (09/30/24 ) Completed Orders - ANTOLIN DEWITT Ketorolac Trometh 15mg/Ml Vial (Toradol (09/30/24 11:15) Vital Signs 09/30/24 09/30/24 09/30/24 10:02 11:46 12:19 Temp 97.8 Pulse 85 74 Resp 18 16 16 B/P (MAP) 136/87 156/103 Pulse Ox 98 94 EKG/XRAY/CT/US/VASC/MRI Bone/Soft Tissue X-Ray (Ext.) : Additional Comment DI ELBOW, COMPLETE (3VW MIN), INDICATION: ELBOW PAIN,LEFT FELL IN SHOWER YESERDAY TECHNICAL DATA: Frontal, oblique and lateral views were obtained of the right elbow. COMPARISON: FOOT, COMPLETE (3VW MIN) on DOS: 11/01/20, ANKLE, COMPLETE(3VW MIN) on DOS: 11/01/20 FINDINGS: No fracture is identified. Well corticated ossific density overlying the lateral epicondyle. This is likely related to remote injury. Joint spaces are maintained . Alignment at the joint is anatomic. No significant elbow joint effusion. Posterior elbow soft tissue swelling. IMPRESSION: 1. No acute fracture or dislocation of the right elbow. 2. Posterior elbow soft tissue swelling. Electronically Signed by:JOON BECKER MD Date & Time: 09/30/241045 Dictated by: JOON BECKER MD Dictation date and time: 09/30/24 104 I have reviewed and agree with the radiology report. I have reviewed and interpreted the imaging as: No fracture or dislocation Medical Decision Making Findings This 59 old male presented with left elbow pain after striking his posterior elbow after slipping in the shower, no other injuries were reported or observed on physical exam, x-ray did not demonstrate evidence of fracture or dislocation to the elbow and physical exam was reassuring as the pain and swelling is isolated to the bursa to the posterior elbow. History and exam is consistent with traumatic bursitis, patient medicated for pain though wrapped and padded. Plan is to treat with RICE therapy and home care instructions were provided. I considered draining bursitis however given risk of infection to the area the risks outweigh the benefits of this option. Patient was given careful return care precautions which he verbalized understanding of. Remainder of physical exam was benign patient is appropriate for outpatient follow up. Elbow Diff Dx:Considerations: Include: Abrasion, Contustion, Fracture-humerus, Fracture-radial head, Fracture-radius, Fracture-ulna, Gout, Laceration, Neurovascular injury, Septic, Sprain, Ulcer Departure Time of Disposition: 12:16 Disposition: 01 HOME / SELF CARE / HOMELESS Impression: Primary Impression: Left elbow pain Condition: Improved Discharge Instructions: Elbow Bursitis, [id number], RICE Therapy for Routine Care of Injuries, [id number] Additional Instructions: Please follow the "RICE" therapy home care instructions, rest of the elbow using the sling as needed, ice the area 20 minutes at a time with a 30 minute rest between ice applications, you may use ibuprofen and or Tylenol as directed by [id number] packaging as needed for pain. Do not take ibuprofen for the next 12 hours as you received a Toradol injection. Please follow up with the primary care provider in the next few days for re-evaluation of the area. Please return to the emergency department for any new or worsening concerning symptoms. Referrals: NO PRIMARY CARE PROVIDER (PCP) Education Educated: Patient Educated regarding: diagnosis, treatment, prognosis, need for follow up Signature Scribe Signature: No scribe Attestation: The note accurately reflects work and decisions made by me.ADILENE Garcia 09/30/24 22:56 ANTOLIN DEWITT Sep 30, 2024 12:19
== END 2024-09-30 12:37 | disposition home or self-care (01) ==
LOC: ER 09:58
DX: M25.522 Pain in left elbow (principal); F31.9 Bipolar disorder, unspecified; J44.9 Chronic obstructive pulmonary disease, unspecified; F12.90 Cannabis use, unspecified, uncomplicated; Z86.73 Personal history of transient ischemic attack (TIA), and cerebral infarction without residual deficits; Z88.0 Allergy status to penicillin; Z88.8 Allergy status to other drugs, medicaments and biological substances; Z90.49 Acquired absence of other specified parts of digestive tract; W18.2XXA Fall in (into) shower or empty bathtub, initial encounter; Y93.E1 Activity, personal bathing and showering; Y92.89 Other specified places as the place of occurrence of the external cause; Y99.8 Other external cause status
CPT/HCPCS: 73080; 96372; 99283; J1885; A4565

== ENCOUNTER 2024-11-12 09:45 | Emergency (ER) | payer MEDICAID ==
[~2024-11-12] VITALS: Ht 175.3 cm; Wt 75.6 kg
[2024-11-12 09:53] VITALS: BP 142/91; PULSE 74; RESP 18; O2SAT 92
[2024-11-12 14:31] VITALS: TEMP 97.8
== END 2024-11-12 14:32 | disposition left against medical advice (07) ==
LOC: ER 09:46
DX: M25.522 Pain in left elbow (principal); Z53.21 Procedure and treatment not carried out due to patient leaving prior to being seen by health care provider

== ENCOUNTER 2025-05-06 16:05 | Emergency (ER) | payer MEDICAID ==
[~2025-05-06] VITALS: Ht 175.3 cm; Wt 74.3 kg
--- NOTE | 2025-05-06 16:26 | ELECTROCARDIOGRAPH REPORT ---
[facility] Test Date: 2025-05-06 Test Time: 16:25:59 Pat Name: VINAYAK BLOOM Department: [facility]-ER Patient ID: [facility]-[id number] Room: Gender: M Supervisor Looping: : 1965 Requested By: JAYLON GALEANA Order Number: [id number] Reading MD: Dr. KIMBERLEY Baxter Measurements Intervals [place] Rate: 97 P: 71 SC: 150 QRS: 81 QRSD: 91 T: 35 QT: 331 QTc: 421 Interpretive Statements Sinus rhythm Anterior infarct, old Minimal ST elevation, lateral leads Baseline wander in lead(s) V1,V2 Electronically Signed On 05-08-2025 16:51:[address] KIMBERLEY Baxter Please click the below link to view image of tracing.
--- NOTE | 2025-05-06 16:41 | RADIOLOGY REPORT ---
History: CP Comparison: None available. Procedure Comments: 2 views of the chest. Findings: Right basilar atelectasis. No focal consolidation. No pleural effusion. Cardiac silhouette is enlarged. Borderline dilated air-filled small bowel in the left upper quadrant. IMPRESSION: 1. Right basilar atelectasis. 2. Borderline dilated small bowel in the left upper quadrant. Dedicated KUB suggested for better evaluation.
[2025-05-06 16:43] LABS: MEAN PLATELET VOLUME 8.5 FL (7.4-10.4); RED CELL DISTRIBUTION WIDTH 13.5 % (11.5-14.5)
[2025-05-06 17:04] LABS: CREATININE 0.80 MG/DL (0.60-1.10); PRO BRAIN NATRIURETIC PEPTIDE 41 PG/ML (0-125); TOTAL CARBON DIOXIDE 29.5 MMOL/L (24-32); eCRCL 102 ML/MIN; eGFR > 90 ML/MIN
[2025-05-06] MEDS: ipratropium/albuterol 3ml nebule NEB ONE (18:33)
[2025-05-06 18:34] VITALS: PULSE 110; RESP 20
[2025-05-06 18:47] VITALS: PULSE 100; RESP 20; O2SAT 94
--- NOTE | 2025-05-06 18:57 | Physician Documentation ---
History of Present Illness ~ Chief Complaint: Shortness of Breath Stated Complaint: SOB Time Seen by MD: 18:56 Primary Medical Doctor[facility] [place] [facility] [place], [place] Mode of Arrival: POV HPI Patient presents to the emergency room with chief complaint of shortness of breath. History of COPD. He states that his asthmatic symptoms have picked up over the last few days along with his runny nose. He states he tried to hit his inhaler today but it had run out. He has a obtained a new inhaler. Denies chest pain. He has established with both Cardiology and pulmonology. Patient is oxygen dependent. Medication Reconciliation Allergies: Coded Allergies: Penicillins (Verified Allergy, Intermediate, 05/06/25) propoxyphene HCl (Verified Allergy, Intermediate, 05/06/25) propoxyphene napsylate (Verified Allergy, Intermediate, 05/06/25) Scheduled Albuterol Sulfate (Proair Hfa), 2 PUFFS INH Q4HPRN Budesonide/Formoterol Fumarate (Symbicort 160-4.5 Mcg Inhaler), 2 PUFFS INH Q12H Bupropion HCl (Bupropion Xl), 1 TAB PO QAM Divalproex ER* (Depakote ER*), 1 TAB PO HS, (Reported) Fluticasone Propionate (Flonase), 2 SPRAYS BOTHNARES DAILY Ipratropium/Albuterol Sulfate (Duoneb 2.5-0.5 Mg/3 Ml Soln), 3 ML IH BID Ipratropium/Albuterol Sulfate (Duoneb 2.5-0.5 Mg/3 Ml Soln), 3 ML IH Q4H Phenytoin Sodium Extended (Phenytoin Sodium Extended), 5 TAB PO HS, (Reported) Silver Sulfadiazine (Silvadene), 1 APPLIC TOP Q12H Silver Sulfadiazine (Silvadene), 1 APPLIC TOP Q12H Scheduled PRN Albuterol Sulfate (Proventil Hfa), 2 PUFFS INH TID PRN PRN for SOB or wheezing, (Reported) Nitroglycerin SL* (Nitrostat SL*), 0.4 MG SL Q5MIN PRN for chest pain Past Medical History Past Medical History: CVA/TIA/Stroke, Seizures, Bronchitis, COPD, Chronic Pain, Chronic Back Pain, Anxiety, Bipolar, Depression Past Surgical History: appendectomy, orthopedic surgeries Smoking Status: Current every day smoker Alcohol Use: None Drug Use: marijuana, other Lives with: Spouse Lives In: Home Occupation: employed Review of Systems ROS All review of systems negative except as per HPI Physical Exam Vital Signs: Temperature: 97.3, Source: Oral, Heart Rate: 100, Respiratory Rat e: 20, BP: 145/94, Pulse Oximetry: 94, Weight: 74.300 Oxygen Flow Rate: 2.0 Physical Exam General: Patient is awake, alert, oriented x4 in mild distress Head: Normocephalic and atraumatic. Eyes: Conjunctival normal. EOMI. PERRL. ENT: Mucous membranes moist. Neck: Supple, trachea is midline. Chest: Diffuse wheezing bilaterally. There is no accessory muscle use or retractions. Cardiac: Tachycardic and regular without murmurs, gallops, or rubs. Progress Results/Orders Results/Orders Medications Received in ER Medications (Trade) Dose Ordered Sig/Kayleen Route PRN Reason Start Time Stop Time Status Last Admin Dose Admin (ipratrop/ albuterol 0.5-3(2.5) MG/3ml nebule) 3 ml ONCE ONCE NEB 05/06/25 17:55 05/06/25 17:56 DC 05/06/25 18:33 3 ML (SoluMEDROL 125mg inj) 125 mg ONCE ONCE IV 05/06/25 18:00 05/06/25 18:01 DC 05/06/25 18:22 125 MG Vital Signs 05/06/25 05/06/25 05/06/25 05/06/25 16:12 17:08 18:34 18:40 Temp 97.3 Pulse 107 110 93 Resp 18 24 20 18 B/P (MAP) 168/87 145/94 (111) Pulse Ox 90 94 O2 Delivery Nasal Cannula* O2 Flow Rate 3.0 2 2.0 FiO2 28 05/06/25 05/06/25 18:43 18:47 Pulse 100 Resp 19 20 B/P (MAP) Pulse Ox 94 O2 Delivery Nasal Cannula* O2 Flow Rate 2 FiO2 28 Laboratory Tests Test 05/06/25 16:33 05/06/25 18:33 White Blood Count 10.5 Red Blood Count 5.29 Hemoglobin 17.7 Hematocrit 51.2 Mean Corpuscular Volume 96.8 Mean Corpuscular Hemoglobin 33.4 H Mean Corpuscular Hemoglobin Concent 34.5 Red Cell Distribution Width 13.5 Platelet Count 227 Mean Platelet Volume 8.5 Neutrophils (%) (Auto) 87.2 H Lymphocytes (%) (Auto) 6.4 L Monocytes (%) (Auto) 5.7 Eosinophils (%) (Auto) 0.4 Basophils (%) (Auto) 0.3 Neutrophils # (Auto) 9.2 H Lymphocytes # (Auto) 0.7 L Monocytes # (Auto) 0.6 Eosinophils # (Auto) 0.0 Basophils # (Auto) 0.0 CBC Comment Sodium Level 138 Potassium Level 4.3 Chloride Level 101 Carbon Dioxide Level 29.5 Anion Gap 8 Blood Urea Nitrogen 12 Creatinine 0.80 Estimated GFR/1.73 m2 > 90 BUN/Creatinine Ratio 15.0 Glucose Level 107 H Calcium Level 9.5 Troponin I High Sensitivity 6 6 Pro-B-Type Natriuretic Peptide 41 Albumin 4.7 Procalcitonin < 0.05 Chemistry Comments Troponin I High Sens Percent Delta 0 Troponin I Hi Sens Absolute Change 0 Medical Decision Making Additional information obtaine: old records Findings Patient presents to the emergency room for evaluation of shortness of breath. Differentials include but are not limited to COPD, asthma, CHF, pulmonary embolism therefore emergent labs and chest x-ray ordered. Chest x-ray and labs are reassuring. Patient that has responded in wheezing has completely resolved. Patient states he feels well enough to go home. ER precautions discussed. Heart Score: 1 Differential Dx:Considerations: Include: anxiety, asthma, bronchitis, cardiogenic shock, CHF, COPD, dysrhythmia, hypertension, accelerated, hypertension, essential, hypertension, malignant, hyperventilation, hyponatremia, myocardial infarction, panic attack, pneumonia, pneumonitis, pneumothorax, PSVT, pulmonary embolism, respiratory distress, respiratory failure, sinusitis, upper resp. infection, other Departure Disposition: HOME / SELF CARE / HOMELESS Impression: Primary Impression: Acute exacerbation of chronic obstructive airways disease Condition: Improved Discharge Instructions: Supporting Someone With COPD Referrals: NO PRIMARY CARE PROVIDER (PCP) Prescriptions Prednisone* (Prednisone*) 20 Mg Tablet 1 TAB PO DAILY for 5 Days, #5 TAB Prov: JARETH HORTA MD 05/06/25 Signature Scribe Signature: No scribe Attestation: The note accurately reflects work and decisions made by me.Jareth Horta MD 05/06/25 19:07 JARETH HORTA MD May 06, 2025 18:57
[2025-05-06] MEDS ORDERED: PRED20TA PO (19:07)
[2025-05-06 19:23] VITALS: BP 141/90; PULSE 104; RESP 18; TEMP 97.3; O2SAT 92
== END 2025-05-06 19:26 | disposition home or self-care (01) ==
LOC: ER 16:05
DX: J44.1 Chronic obstructive pulmonary disease with (acute) exacerbation (principal); I25.2 Old myocardial infarction; G89.29 Other chronic pain; F41.9 Anxiety disorder, unspecified; F31.9 Bipolar disorder, unspecified; F17.200 Nicotine dependence, unspecified, uncomplicated; F12.90 Cannabis use, unspecified, uncomplicated; Z88.0 Allergy status to penicillin; Z88.8 Allergy status to other drugs, medicaments and biological substances; Z86.73 Personal history of transient ischemic attack (TIA), and cerebral infarction without residual deficits; Z90.49 Acquired absence of other specified parts of digestive tract; Z79.899 Other long term (current) drug therapy; Z79.52 Long term (current) use of systemic steroids
CPT/HCPCS: 36415; 71046; 80048; 83880; 84145; 84484; 85025; 93005; 94640; 96374; 99285; J2919; 94760; A4615